=== PATIENT | male | born 1985 | race Asian ===

== ENCOUNTER 2024-02-01 06:34 | Day surgery (SDC) | payer BC, SELFPAY ==
[2024-02-01] VITALS (9 sets, daily range): BP systolic 96–115; BP diastolic 56–71; BMI 25.0
[2024-02-01] MEDS: NORMOSOL-R 1000 IV (07:52)
== END 2024-02-01 12:25 | disposition home or self-care (01) ==
LOC: SDS 06:34
PROVIDERS: ATTENDING PHYSICIAN Otolaryngology
DX: J34.2 Deviated nasal septum (principal); J34.3 Hypertrophy of nasal turbinates
CPT/HCPCS: 30520; 30802